=== PATIENT | male | born 1985 | race Caucasian/White ===

== ENCOUNTER 2017-04-17 12:55 | Emergency (ER) | payer BC ==
[2017-04-17] MEDS ORDERED: Sodium Chloride 0.9% 10 ML Syringe FLUSH PRN (13:12)
[2017-04-17] MEDS ORDERED: Ondansetron 4 MG/2 ML SDV IVPUSH ONE (13:12)
[2017-04-17] MEDS ORDERED: Sodium Chloride 0.9% 2.5 ML Syringe FLUSH PRN (13:12)
[2017-04-17] MEDS ORDERED: Ketorolac 30 MG/ML SDV IVPUSH ONE (13:12)
[2017-04-17] MEDS ORDERED: Alum Hydrox/Mag Hydrox/Simeth 15 ML, Metoclopramide 5 MG, Lidocaine 2% 5 ML PO ONE ×3 (13:12)
[2017-04-17] MEDS ORDERED: Sodium Chloride 0.9% 1,000 ML IV ONE (13:12)
[2017-04-17] MEDS ORDERED: Pantoprazole 40 MG Vial IVPUSH ONE (13:12)
--- NOTE | 2017-04-17 13:16 | EDM.PDOC ---
ED HPI GENERAL MEDICAL PROBLEM - General Chief Complaint: Genitourinary Problem Stated Complaint: BACK PAIN Time Seen by Provider: 04/17/17 12:56 - History of Present Illness INITIAL COMMENTS - FREE TEXT/NARRATIVE: HISTORY AND PHYSICAL: History of present illness: The patient is a healthy 31-year-old male with no history of GI or problems who has been doing a cleanse with shakes and eating a vegan diet for the last 2- 3 weeks and presents with complaints of epigastric and left upper abdominal pain that started 2 days ago after he ate pizza. The patient says that before he did this diet without any food intolerance and has no problems with that. He says he's been feeling good doing the cleanse and then he had the episode of eating the pizza and the pain has been persistent since that time. He has had nausea but no vomiting no diarrhea and no fevers or chills no flank pain chest pain or shortness of breath. He has tried [id number] Pepto-Bismol but that did not work. [facility] for this discomfort and they did an x-ray and he was told that he should come to the ER as he might need a CAT scan for possible kidney stone. The patient denies any hematuria dysuria frequency or flank pain. He says that the left upper abdominal /epigastric pain sometimes will radiate to the left side but not completely around to the flank. Please note that the patient does not have a cough shortness of breath or any left-sided chest pain or pleuritic pain with deep breaths. Patient also has no urinary complaints as stated above Review of systems: As per history of present illness and below otherwise all systems reviewed and negative. Past medical history: As per history of present illness and as reviewed below otherwise noncontributory. Surgical history: As per history of present illness and as reviewed below otherwise noncontributory. Social history: No reported history of drug or alcohol abuse. Family history: As per history of present illness and as reviewed below otherwise noncontributory. Physical exam: General: Well-developed well-nourished male who is nontoxic and moves easily in the ED without distress HEENT: Atraumatic, normocephalic, negative for conjunctival pallor or scleral icterus, mucous membranes moist, throat clear, neck supple, nontender, trachea midline. Lungs: Clear to auscultation, breath sounds equal bilaterally, chest nontender. Heart: S1S2, regular rate and rhythm no overt murmurs. Abdomen: Soft, nondistended, minimally tender in the epigastrium and left upper quadrant without rebound or guarding. Bowel sounds are hypoactive. Negative for masses or hepatosplenomegaly. Negative for costovertebral tenderness. Pelvis: Stable nontender. Genitourinary: Deferred. Rectal: Deferred. Extremities: Atraumatic, negative for cords or calf pain. Neurovascular unremarkable. Neuro: Awake, alert, oriented. Cranial nerves II through XII unremarkable. Cerebellum unremarkable. Motor and sensory unremarkable throughout. Exam nonfocal. Diagnostics: CBC CMP amylase lipase CT scan of the abdomen and pelvis The outside clinic has since me the report from his x-ray which was a 1 view KUB which indicates a 1 mm calcification over the right pelvis which is nonspecific and could represent a kidney stone Therapeutics: IV fluids protonic Zofran Toradol GI cocktail The patient reiterates that the pain has been constant for 2 days in the left upper abdomen area radiating slightly to the flank but not completely around and not to the chest. The patient is aware of all testing results and the reason for the delays with testing here in the ED. He currently says that he still has the same pain and nothing is made him feel better and he is very upset he came here and that he underwent this workup. He is upset that the outside clinic sent him here and I have discussed with him that he might need further outpatient testing to further diagnosis problems and that I would give him some PPIs as well as medications for pain to help him in his journey he still seems very upset. I will plan for discharge. I've advised him to stop his cleanse and to eat a more bland diet and he states that he may or may not do that Impression: Epigastric/left upper abdominal pain Definitive disposition and diagnosis as appropriate pending reevaluation and review of above. Middle Abdominal Pain Score (Numeric/FACES): 10 - Related Data Allergies Allergy/AdvReac Type Severity Reaction Status Date / Time No Known Allergies Allergy Verified 04/17/17 13:07 Home Meds: Home Meds . [No Known Home Meds] 04/17/17 [History] ED ROS GENERAL - Review of Systems Review Of Systems: ROS reveals no pertinent complaints other than HPI. ED EXAM, GENERAL - Physical Exam Exam: See Below (See dictation) Course - Vital Signs Last Recorded V/S: Last Vital Signs Temp 36.8 C 04/17/17 13:02 Pulse 96 04/17/17 13:02 Resp 18 04/17/17 13:02 BP 138/82 04/17/17 13:02 Pulse Ox 97 04/17/17 13:02 - Orders/Labs/Meds Orders: Active Orders 24 hr Category Date Time Status Sodium Chloride 0.9% [Saline Flush] Med 04/17/17 13:12 Active 10 ml FLUSH ASDIRECTED PRN Sodium Chloride 0.9% [Saline Flush] Med 04/17/17 13:12 Active 2.5 ml FLUSH ASDIRECTED PRN Saline Lock Insert [OM.PC] Stat Oth 04/17/17 13:11 Ordered Medication Orders Sodium Chloride (Saline Flush) 10 ml FLUSH ASDIRECTED PRN PRN Reason: Keep Vein Open Last Admin: 04/17/17 13:39 Dose: 10 ml Sodium Chloride (Saline Flush) 2.5 ml FLUSH ASDIRECTED PRN PRN Reason: Keep Vein Open Last Admin: 04/17/17 13:40 Dose: 2.5 ml Labs: Laboratory Tests 04/17/17 04/17/17 04/17/17 Range/Units 13:23 13:23 13:30 WBC 6.24 (4.0-11.0) K/uL RBC 4.92 (4.50-5.90) M/uL Hgb 15.3 (13.0-17.0) g/dL Hct 42.9 (38.0-50.0) % MCV 87.2 (80.0-98.0) fL MCH 31.1 (27.0-32.0) pg MCHC 35.7 (31.0-37.0) g/dL RDW Std Deviation 40.5 (28.0-62.0) fl RDW Coeff of Vish 13 (11.0-15.0) % Plt Count 218 (150-400) K/uL MPV 10.20 (7.40-12.00) fL Neut % (Auto) 52.9 (48.0-80.0) % Lymph % (Auto) 28.8 (16.0-40.0) % [place] % (Auto) 7.9 (0.0-15.0) % Eos % (Auto) 10.1 H (0.0-7.0) % Baso % (Auto) 0.3 (0.0-1.5) % Neut # (Auto) 3.3 (1.4-5.7) K/uL Lymph # (Auto) 1.8 (0.6-2.4) K/uL [place] # (Auto) 0.5 (0.0-0.8) K/uL Eos # (Auto) 0.6 (0.0-0.7) K/uL Baso # (Auto) 0.0 (0.0-0.1) K/uL Nucleated RBC % 0.0 /100WBC Nucleated RBCs # 0 K/uL Sodium 140 (136-146) mmol/L Potassium 4.0 (3.5-5.1) mmol/L Chloride 107 (98-110) mmol/L Carbon Dioxide 26 (21-31) mmol/L BUN 13 (6.0-23.0) mg/dL Creatinine 1.0 (0.6-1.5) mg/dL Est Cr Clr Drug Dosing 102.60 mL/min Estimated GFR (MDRD) > 60.0 ml/min Glucose 78 (60-110) mg/dL Calcium 9.6 (8.8-10.8) mg/dL Total Bilirubin 0.6 (0.1-1.5) mg/dL AST 22 (5-40) IU/L ALT 23 (8-54) IU/L Alkaline Phosphatase 82 (40-150) Total Protein 7.2 (6.0-8.0) g/dL Albumin 4.4 (3.5-5.0) g/dL Globulin 2.8 (2.0-3.5) g/dL Albumin/Globulin Ratio 1.6 (1.3-2.8) Amylase 51 (10-90) U/L Lipase 28 (7-80) U/L Urine Color YELLOW Urine Appearance CLEAR Urine pH 6.5 (5.0-8.0) Ur Specific [place] <= 1.005 (1.001-1.035) Urine Protein NEGATIVE (NEGATIVE) mg/dL Urine Glucose (UA) NEGATIVE (NEGATIVE) mg/dL Urine Ketones NEGATIVE (NEGATIVE) mg/dL Urine Occult Blood NEGATIVE (NEGATIVE) Urine Nitrite NEGATIVE (NEGATIVE) Urine Bilirubin NEGATIVE (NEGATIVE) Urine Urobilinogen 0.2 (<2.0) EU/dL Ur Leukocyte Esterase NEGATIVE (NEGATIVE) Urine RBC NONE SEEN (0-2/HPF) Urine WBC 0-1 (0-5/HPF) Ur Epithelial Cells RARE (NONE-FEW) Urine Bacteria RARE (NEGATIVE) Meds: Medications Generic Name Dose Route Start Last Admin Trade Name Freq PRN Reason Stop Dose Admin Sodium Chloride 10 ml 04/17/17 13:12 04/17/17 13:39 Saline Flush FLUSH 10 ml ASDIRECTED PRN Administration Keep Vein Open Sodium Chloride 2.5 ml 04/17/17 13:12 04/17/17 13:40 Saline Flush FLUSH 2.5 ml ASDIRECTED PRN Administration Keep Vein Open Discontinued Medications Generic Name Dose Route Start Last Admin Trade Name Freq PRN Reason Stop Dose Admin Al Hydroxide/Mg Hydroxide 15 0 ml 04/17/17 13:12 04/17/17 13:39 ml/ Metoclopramide HCl 5 mg/ PO 04/17/17 13:13 25 each Lidocaine HCl 5 ml ONETIME ONE Administration Sodium Chloride 1,000 mls @ 999 mls/hr 04/17/17 13:12 04/17/17 13:38 Normal Saline IV 04/17/17 14:12 999 mls/hr STAT ONE Administration Ketorolac Tromethamine 30 mg 04/17/17 13:12 04/17/17 13:38 Toradol IVPUSH 04/17/17 13:13 30 mg ONETIME ONE Administration Ondansetron HCl 4 mg 04/17/17 13:12 04/17/17 13:38 Zofran IVPUSH 04/17/17 13:13 4 mg ONETIME ONE Administration Pantoprazole Sodium 40 mg 04/17/17 13:12 04/17/17 13:38 Protonix Iv IVPUSH 04/17/17 13:13 40 mg .BOLUS ONE Administration Departure - Departure Time of Disposition: 16:31 Disposition: Home, Self-Care 01 Condition: Good Clinical Impression: Abdominal pain Qualifiers: Abdominal location: left upper quadrant Qualified Code(s): R10.12 - Left upper quadrant pain - Discharge Information Referrals: PCP,None [Primary Care Provider] - Forms: ED Department Discharge Additional Instructions: The following information is given to patients seen in the emergency department who are being discharged to home. This information is to outline your options for follow-up care. We provide all patients seen in our emergency department with a follow-up referral. The need for follow-up, as well as the timing and circumstances, are variable depending upon the specifics of your emergency department visit. If you don't have a primary care physician on staff, we will provide you with a referral. We always advise you to contact your personal physician following an emergency department visit to inform them of the circumstance of the visit and for follow-up with them and/or the need for any referrals to a consulting specialist. The emergency department will also refer you to a specialist when appropriate. This referral assures that you have the opportunity for followup care with a specialist. All of these measure are taken in an effort to provide you with optimal care, which includes your followup. Under all circumstances we always encourage you to contact your private physician who remains a resource for coordinating your care. When calling for followup care, please make the office aware that this follow-up is from your recent emergency room visit. If for any reason you are refused follow-up, please contact the [facility] emergency department at and ask to speak to the emergency department charge nurse. [facility] Primary care- Internal Medicine and Family [address] [id number] Please use medications as prescribed and also call and follow-up with your provider for more testing as we discussed as you will need more evaluation to determine the cause of this pain. Push hydration and eating a bland diet as we discussed and return to ER as needed and as discussed. - My Orders Last 24 Hours: My Active Orders 04/17/17 13:11 Saline Lock Insert [OM.PC] Stat 04/17/17 13:12 Sodium Chloride 0.9% [Saline Flush] 10 ml FLUSH ASDIRECTED PRN Sodium Chloride 0.9% [Saline Flush] 2.5 ml FLUSH ASDIRECTED PRN - Assessment/Plan Last 24 Hours: My Active Orders 04/17/17 13:11 Saline Lock Insert [OM.PC] Stat 04/17/17 13:12 Sodium Chloride 0.9% [Saline Flush] 10 ml FLUSH ASDIRECTED PRN Sodium Chloride 0.9% [Saline Flush] 2.5 ml FLUSH ASDIRECTED PRN
[2017-04-17 13:47] LABS: CHLORIDE,CL 107 mmol/L (98-110); SODIUM,NA 140 mmol/L (136-146)
--- NOTE | 2017-04-17 16:17 | CT ---
CT of the abdomen and pelvis without contrast. HISTORY: Pain TECHNIQUE: Axial CT images were obtained of the abdomen and pelvis without contrast. Coronal and sagi ttal reconstructions obtained. FINDINGS: The lung bases are clear, no pleural effusion. There is a tiny hypodensity within the left hepatic lobe, too small for characterize. The spleen, adr enal glands, and pancreas appear unremarkable for noncontrast examination. The gallbladder appears no rmal. There is no bulky retroperitoneal lymphadenopathy. No abdominal ascites. Tiny fat-containing u mbilical hernia. There are no calcifications noted within the kidneys or along the courses of the ureters bilaterally. The large and small bowel are normal in caliber without evidence of obstruction. The appendix appears normal. There is no bulky pelvic lymphadenopathy. No free fluid. No free air. The urinary bladder ap pears normal. The visualized osseous structures appear normal. IMPRESSION: No acute findings within the abdomen or pelvis.
[2017-04-17 16:46] VITALS: BP 133/72
== END 2017-04-17 16:46 | disposition home or self-care (01) ==
LOC: MW.ED 12:55
DX: R10.12 Left upper quadrant pain (principal); R10.13 Epigastric pain
CPT/HCPCS: 36415; 74176; 80053; 81001; 82150; 83690; 85025; 96361; 96374; 96375; 99284; A9270; C9113; J1885; J2405; J7040; 99283